=== PATIENT | male | born 1970 | race Caucasian/White ===

== ENCOUNTER 2017-09-10 15:37 | Emergency (ER) | payer MEDICAID, BC | END 2017-09-10 18:34 | disposition home or self-care (01) | LOC: E/R 18:34 | DX: L97.521 Non-pressure chronic ulcer of other part of left foot limited to breakdown of skin (principal); B35.3 Tinea pedis; E11.9 Type 2 diabetes mellitus without complications; Z79.4 Long term (current) use of insulin | CPT/HCPCS: 99283; Z7502 ==

== ENCOUNTER 2018-08-13 08:58 | Emergency (ER) | payer MEDICAID ==
[2018-08-13] MEDS: HALOPERIDOL 5 MG INJ IM (09:28)
[2018-08-13] MEDS: LORAZEPAM 2 MG INJ IM (09:28)
[2018-08-13 10:19] LABS: ADD MAN DIFF? NO
[2018-08-13 10:22] LABS: BASOPHILS % 0.6 % (0.0-2.0); EOSINOPHILS # 0.5 10^3/ul (0.0-0.5); EOSINOPHILS % 7.2 % (0.0-7.0); HEMATOCRIT 42.3 % (42.0-52.0); HEMOGLOBIN 14.5 g/dl (14.0-18.0); LYMPHOCYTES # 1.5 10^3/ul (0.8-2.9); LYMPHOCYTES % 22.4 % (15.0-51.0); MEAN CORPUSCULAR HEMOGLOBIN 29.7 pg (29.0-33.0); MEAN CORPUSCULAR HGB CONC 34.3 g/dl (32.0-37.0); MEAN CORPUSCULAR VOLUME 86.5 fl (82.0-101.0); MEAN PLATELET VOLUME 10.1 fl (7.4-10.4); MONOCYTE # 0.4 10^3/ul (0.3-0.9); MONOCYTES % 6.2 % (0.0-11.0); NEUTROPHIL # 4.2 10^3/ul (1.6-7.5); NEUTROPHILS % 63.1 % (39.0-77.0); PLATELET COUNT 267 10^3/UL (140-415); RED BLOOD COUNT 4.89 10^6/ul (4.70-6.10); RED CELL DISTRIBUTION WIDTH 11.9 % (11.5-14.5)
[2018-08-13 10:22] LABS: WHITE BLOOD COUNT 6.7 10^3/ul (4.8-10.8)
[2018-08-13 10:49] LABS: ALANINE AMINOTRANSFERASE 19 IU/L (13-69); ALBUMIN 4.6 g/dl (3.3-4.9); ALBUMIN/GLOBULIN RATIO 1.35; ALKALINE PHOSPHATASE 128 IU/L (42-121); ANION GAP 16 (5-13); ASPARTATE AMINO TRANSFERASE 29 IU/L (15-46); BILIRUBIN,INDIRECT 0.3 mg/dl (0-1.1); BILIRUBIN,TOTAL 0.3 mg/dl (0.2-1.3); BLOOD UREA NITROGEN 19 mg/dl (7-20); CALCIUM 9.9 mg/dl (8.4-10.2); CARBON DIOXIDE 25 mmol/L (21-31); CHLORIDE 96 mmol/L (97-110); CREATININE 0.63 mg/dl (0.61-1.24); ETHANOL < 10.0 mg/dl (0-0); Estimated GFR > 60 mL/min (>60); POTASSIUM 4.6 mmol/L (3.5-5.1); SODIUM 137 mmol/L (135-144)
[2018-08-13 10:55] LABS: GLUCOSE 452 mg/dl (70-220)
[2018-08-13] MEDS: INSULIN LISPRO 100 UNIT/ML VIAL SC (11:28)
[2018-08-13 11:58] LABS: ACETAMINOPHEN < 10.0 ug/ml (10.0-30.0); SALICYLATE < 1.0 mg/dl (5.0-30.0)
[2018-08-13 16:20] LABS: ADD UMIC NO; UR ASCORBIC ACID NEGATIVE (NEGATIVE); UR BILIRUBIN (Dip) NEGATIVE (NEGATIVE); UR BLOOD (Dip) NEGATIVE (NEGATIVE); UR CLARITY CLEAR (CLEAR); UR COLOR YELLOW (YELLOW); UR GLUCOSE (Dip) 3+ mg/dL (NEGATIVE); UR KETONES (Dip) 1+ mg/dL (NEGATIVE); UR LEUKOCYTE ESTERASE (Dip) NEGATIVE Leu/ul (NEGATIVE); UR NITRITE (Dip) NEGATIVE (NEGATIVE); UR SPECIFIC GRAVITY (Dip) 1.035 (1.003-1.030); UR TOTAL PROTEIN (Dip) NEGATIVE (NEGATIVE); UR UROBILINOGEN (Dip) NEGATIVE (NEGATIVE)
[2018-08-13 16:55] LABS: BARBITURATES NEGATIVE (NEGATIVE); BENZODIAZEPINES NEGATIVE (NEGATIVE); CANNABINOIDS NEGATIVE (NEGATIVE); COCAINE NEGATIVE (NEGATIVE); OPIATES NEGATIVE (NEGATIVE)
[2018-08-13 17:04] LABS: AMPHETAMINE/METHAMPHETAMINE POSITIVE (NEGATIVE)
[2018-08-14] MEDS: INSULIN REGULAR, HUMAN 100 UNIT/1 ML 3ML VIAL SC (11:04)
[2018-08-14] MEDS: INSULIN ASPART [NOVOLOG] 3 ML PEN SC (19:40)
[2018-08-15] MEDS: INSULIN LISPRO 100 UNIT/ML VIAL SC ×2 (05:04→09:04)
== END 2018-08-15 13:10 | disposition home or self-care (01) ==
LOC: E/R 08-15 13:10
DX: F23 Brief psychotic disorder (principal); E11.65 Type 2 diabetes mellitus with hyperglycemia; Z79.4 Long term (current) use of insulin
CPT/HCPCS: 36415; 80053; 80307; 81003; 82962; 85025; 96372; 99291-25